=== PATIENT | male | born 1970 | race Hispanic/Latino ===

== ENCOUNTER 2020-01-10 10:25 | Observation (INO) | payer OTHER ==
[~2020-01-10] VITALS: Ht 175.3 cm; Wt 79.4 kg
--- OUTSIDE RECORDS SUMMARY | 2020-01-10 10:28 | XMS REPORT ---
Author Author [facility] Address Unknown Phone Unavailable Care Team Providers Care [employer] Button Paster Name Role Phone KRYSTAL BRANDT Unavailable Unavailable Problems This patient has no known problems. Allergies, Adverse Reactions, Alerts This patient has no known allergies or adverse reactions. Medications This patient has no known medications. Results Test Description Test Time Test Comments Text Results Atomic Results Result Comments US ABDOMEN COMPLETE 2019-09-18 12:45:00 [place] [address] Patient Name: SRAVANTHI MONTERO MR #: [id number] : 1970 Age/Sex: 49/M Req #: [id number] [facility] Physician: Ordered by: KRYSTAL BRANDT MD Report #: [id number] Location: Room/Bed: Procedure: [id number] US/US ABDOMEN COMPLETE Exam Date: 09/18/19 Exam Time: 1117 REPORT STATUS: Signed EXAM: US ABDOMEN COMPLETE DATE: 09/18/2019 10:56 AM INDICATION: Right upper quadrant abdominal pain COMPARISON: None TECHNIQUE: Transverse and longitudinal rangel scale and color doppler sonographic images of the upper abdomen were obtained. FINDINGS: LIVER 14.4 cm in the right midclavicular line. Increased echogenicity of the liver with normal contour, no masses. SPLEEN 9.6 cm in maximum diameter. Normal echogenicity, no masses. GALLBLADDER No gallbladder wall thickening, distension, stone, or pericholecystic fluid. Negative reported sonographic Diallo's sign. The gallbladder wall measures 2mm BILE DUCTS No intra nor extra-hepatic biliary dilation. Common bile duct measures 3mm PANCREAS: Visualized portions are normal. RIGHT KIDNEY: 11.3 cm Echogenicity: Normal Collecting System: No hydronephrosis Stones: None Cyst/Mass: None LEFT KIDNEY: 12.2 cm Echogenicity: Normal Collecting System: No hydronephrosis Stones: None Cyst/Mass: None VESSELS: Aorta: Visualized portions are within normal size limits Inferior Vena Cava: Visualized portions are normal Main Portal Vein: 0.9 cm, normal size with hepatopetal flow. FREE FLUID: None IMPRESSION: No cholelithiasis or sonographic evidence of cholecystitis. Hepatic steatosis. No renal calculi or hydronephrosis. Signed by: Iris Abraham MD on 09/18/2019 12:47 PM Dictated By: IRIS ABRAHAM MD [id number] Transcribed By: DAVID on 09/18/19 1247 COPY TO: KRYSTAL BRANDT MD
[2020-01-10] MEDS ORDERED: SODIUM CHLORIDE 0.9% 1000ML 1,000 ML IV STA (10:36)
[2020-01-10] MEDS ORDERED: ASPIRIN 81 MG CHEW TAB PO ONE (10:45)
[2020-01-10] MEDS ORDERED: METOPROLOL TARTRATE 25 MG TAB PO ONE (10:45)
[2020-01-10 10:47] LABS: BASOPHILS # (AUTO) 0.1 (0.0-0.1); BASOPHILS % 0.8 % (0.0-1.0); EOSINOPHILS # (AUTO) 0.1 (0.0-0.4); EOSINOPHILS % 1.9 % (0.0-6.0); HEMOGLOBIN 17.1 g/dL (14.0-18.0); LYMPHOCYTES # (AUTO) 2.6 (1.0-3.2); LYMPHOCYTES % 40.9 % (18.0-39.1); MEAN CORPUSCULAR HEMOGLOBIN 33.5 pg (28-32); MEAN CORPUSCULAR HGB CONC 36.4 g/dL (31-35); MEAN CORPUSCULAR VOLUME 92.2 fL (81-99); MONOCYTES # (AUTO) 0.8 (0.2-0.8); NEUTROPHILS # (AUTO) 2.7 (2.1-6.9); NEUTROPHILS % 44.1 % (38.7-80.0); PLATELET COUNT 236 x10e3/uL (140-360)
[2020-01-10 10:54] LABS: BILIRUBIN,URINE NEGATIVE (NEGATIVE); CLARITY,URINE CLEAR (CLEAR); COLOR,URINE YELLOW (YELLOW); KETONES,URINE NEGATIVE (NEGATIVE); LEUKOCYTE ESTERASE ,URINE NEGATIVE (NEGATIVE); NITRITE,URINE NEGATIVE (NEGATIVE); PROTEIN,URINE DIPSTICK NEGATIVE (NEGATIVE); URINE UROBILINOGEN 0.2 mg/dL (0.2 - 1)
[2020-01-10 10:59] LABS: INR 0.89; PARTIAL THROMBOPLASTIN TIME 26.8 seconds (23.8-35.5); PROTHROMBIN TIME 12.6 seconds (11.9-14.5)
--- NOTE | 2020-01-10 11:05 | Diagnostic Imaging Report ---
EXAMINATION: CHEST SINGLE (PORTABLE) INDICATION: Atrial fibrillation, chest pain COMPARISON: None FINDINGS: LINES/TUBES:EKG leads overlie the chest. LUNGS:The lungs are well-inflated. No focal consolidation or pulmonary edema. PLEURA:No pleural effusion or pneumothorax. MEDIASTINUM:The cardiomediastinal silhouette appears normal in size and shape. BONES/SOFT TISSUES:No acute osseous injury. ABDOMEN:No free air under the diaphragm. IMPRESSION: No focal pneumonia or pulmonary edema. Signed by: Krzysztof Gray MD on 01/10/2020 11:02 AM
[2020-01-10 11:09] LABS: ALANINE AMINOTRANSFERASE 26 IU/L (0-55); ALBUMIN 4.1 g/dL (3.5-5.0); ALBUMIN/GLOBULIN RATIO 1.3 (0.8-2.0); ALKALINE PHOSPHATASE 58 IU/L (40-150); ANION GAP 10.9 mmol/L (8-16); BLOOD UREA NITROGEN 13 mg/dL (7-26); BUN/CREATININE RATIO 15 (6-25); CALCIUM 9.7 mg/dL (8.4-10.2); CARBON DIOXIDE 30 mmol/L (22-29); CHLORIDE 106 mmol/L (98-107); CREATINE KINASE 110 IU/L (30-200); CREATININE, SERUM 0.85 mg/dL (0.72-1.25); EST GLOMERULAR FILTRATION RATE > 60 ML/MIN (60-); GLUCOSE 88 mg/dL (74-118); MAGNESIUM 2.2 MG/DL (1.3-2.1); POTASSIUM 3.9 mmol/L (3.5-5.1); SODIUM 143 mmol/L (136-145)
[2020-01-10] MEDS: ENOXAPARIN INJ 80 MG/0.8 ML SYR SC SCH ×2 (11:11→21:17)
[2020-01-10 11:21] LABS: BACTERIA,URINE MODERATE /HPF; EPITHELIAL CELLS,URINE RARE /LPF; MUCUS,URINE MODERATE (RARE); RBC,URINE 0-5 /HPF (0-5); WBC,URINE (MAN) 0-5 /HPF (0-5)
[2020-01-10 11:23] LABS: THYROID STIMULATING HORMONE 1.366 uIU/mL (0.350-4.940)
[2020-01-10] MEDS ORDERED: LORAZEPAM INJ 2 MG/ML VIAL IV ONE (11:30)
[2020-01-10 11:37] LABS: AMPHETAMINES SCREEN,URINE NEGATIVE (NEGATIVE); BENZODIAZEPINES SCREEN,URINE NEGATIVE (NEGATIVE); PHENCYCLIDINE SCREEN,URINE NEGATIVE (NEGATIVE)
[2020-01-10] MEDS ORDERED: MORPHINE SULFATE 2 MG/ML SYR 1ML IV PRN (11:45)
[2020-01-10] MEDS ORDERED: ONDANSETRON HCL INJ 2MG/ML 2ML 2 MG/ML VIAL IV PRN (11:45)
[2020-01-10] MEDS ORDERED: METOPROLOL TARTRATE INJ 1 MG/ML VIAL IV ONE (11:45)
[2020-01-10] MEDS ORDERED: MULTIVITAMINS- 12 INJECTION 10 ML, FOLIC ACID MDV 5 MG, THIAMINE HCL INJ 100 MG in SODI... IV ONE (11:45)
[2020-01-10] MEDS ORDERED: LORAZEPAM INJ 2 MG/ML VIAL IV PRN (11:45)
[2020-01-10] MEDS ORDERED: NITROGLYCERIN 0.4 MG SUBL SL PRN (11:45)
[2020-01-10] MEDS: AMIODARONE HCL 200 MG TAB PO SCH ×2 (12:25→16:18)
--- NOTE | 2020-01-10 13:00 | NUR ---
Patient denies the use of home medications.
[2020-01-10 14:00] VITALS: BP 111/80
--- NOTE | 2020-01-10 14:00 | NUR ---
Received patient transfer from ER via wheelchair. Respiration even and unlabored without SOB. Call light in reach.
[2020-01-10 15:52] VITALS: BP 111/80
[2020-01-10] MEDS: METOPROLOL TARTRATE 25 MG TAB PO SCH (16:18)
--- NOTE | 2020-01-10 19:03 | NUR ---
Report given to shift coordinator. Respiration even and unlabored without SOB. Call light in reach.
--- NOTE | 2020-01-10 19:22 | Consultation ---
DATE OF CONSULTATION: 01/10/2020 Cardiac Consultation REASON FOR CONSULTATION: Atrial fibrillation, shortness of breath, and chest tightness. HISTORY OF PRESENT ILLNESS: This is a 49-year-old gentleman, who was healthy and active. Yesterday, he felt chest pressure and chest tightness with palpitation. This did not improve, so he was alarmed by it. He came to the emergency room, was in atrial fibrillation with rapid ventricular response. Cardiac consultation is obtained. The patient said with his palpitation, he is having some tightness and he is feeling funny. Prior to this episode yesterday, the patient was very physically active with no angina. He does have class 2 shortness of breath on exertion. No orthopnea. No paroxysmal nocturnal dyspnea. No syncope. No presyncope. The patient had similar episode 7 years ago, which subsided by itself. The patient is a nonsmoker, but he drinks alcohol when he is not at work. He does not use any drugs. REVIEW OF SYSTEMS: Done to all systems, will be summarized for clarity. GENERAL: No fever. No chills. No weight loss. No weight gain. HEENT: No vision problem. No hearing problem. PULMONARY AND CARDIAC: As per above. GI: No hematemesis. No melena. Occasional heartburn. The patient had EGD and colonoscopy a few months back. : No hematuria. No dysuria. No frequency. MUSCULOSKELETAL: No aches. No pain. SOCIAL HISTORY: He is . 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 He is nonsmoker. He drinks alcohol when he is off work and with his friend's. PAST MEDICAL HISTORY: 1. One episode of atrial 7 years ago. 2. Appendectomy at a young age. HOME MEDICATIONS: None. ALLERGIES: NONE. FAMILY HISTORY: Father with Alzheimer's. He is old in his 80s. Mother is doing well in her 80s. No family history of premature coronary artery disease. PHYSICAL EXAMINATION: VITAL SIGNS: Height of 5 feet 6 inches, weight of 185 pounds. Blood pressure 110/60, heart rate irregularly irregular of atrial fibrillation at 110. The patient already received some beta-adrian intravenously by ER. Respiratory rate of 18. HEENT: Pupils are equal and reactive. NECK: No elevation of jugular venous pulsation. No bruit. CHEST: Clear to auscultation and percussion. HEART: PMI in the 5th left intercostal space. Irregularly irregular rate of atrial fibrillation. Normal first and second heart sounds. ABDOMEN: Soft with no organomegaly. No abdominal bruits. EXTREMITIES: No cyanosis. No clubbing. No edema. NEUROLOGIC: Nonfocal. LABORATORY DATA: White blood cell count of 6.2, hemoglobin 17.1, hematocrit 47%, and platelet count of 236,000. Electrolytes were normal. Potassium 3.9, glucose of 88. First set of cardiac enzymes normal. BNP is normal. TSH of 1.3. IMPRESSION AND PLAN: 1. Acute atrial fibrillation, symptomatic, prior episode 7 years ago. 2. No premature coronary artery disease. Cardiac monzon, my recommendation is small dose of beta-adrian, anticoagulation initiated by ER, which we will continue for the time being, aspirin. The patient will be observed on telemetry. There is a good chance he will be out of it by himself. If not, then we will decide about further steps. Echocardiogram is ordered. We are going to follow results to assure no left ventricular dysfunction or any other structural heart disease. At one stage, he will benefit from stress test, but this will be decided later. MD LINDSAY Brown/VICTORIA /[id number]
[2020-01-10 19:48] LABS: CREATINE KINASE MB 1.7 ng/mL (0-5.0)
[2020-01-10 20:00] VITALS: BP 134/89
[2020-01-10] MEDS ORDERED: ACETAMINOPHEN 325 MG TAB PO PRN (20:00)
[2020-01-10] MEDS: FAMOTIDINE 20 MG/2 ML VIAL IV SCH (21:17)
[2020-01-10 22:16] VITALS: BP 128/100
[2020-01-10 22:20] VITALS: BP 128/100
[2020-01-11] VITALS (7 sets, daily range): BP systolic 118–131; BP diastolic 84–96
[2020-01-11 06:14] LABS: BASOPHILS % 0.6 % (0.0-1.0); EOSINOPHILS # (AUTO) 0.2 (0.0-0.4); EOSINOPHILS % 2.8 % (0.0-6.0); HEMATOCRIT 46.7 % (38.2-49.6); HEMOGLOBIN 16.7 g/dL (14.0-18.0); LYMPHOCYTES # (AUTO) 2.8 (1.0-3.2); LYMPHOCYTES % 40.8 % (18.0-39.1); MEAN CORPUSCULAR HEMOGLOBIN 32.9 pg (28-32); MEAN CORPUSCULAR HGB CONC 35.8 g/dL (31-35); MEAN CORPUSCULAR VOLUME 91.9 fL (81-99); MONOCYTES # (AUTO) 0.6 (0.2-0.8); MONOCYTES % 9.2 % (4.4-11.3); NEUTROPHILS # (AUTO) 3.1 (2.1-6.9); NEUTROPHILS % 46.3 % (38.7-80.0); PLATELET COUNT 240 x10e3/uL (140-360); RED BLOOD COUNT 5.08 x10e6/uL (4.3-5.7); RED CELL DISTRIBUTION WIDTH 11.9 % (11.7-14.4)
[2020-01-11 06:32] LABS: ALANINE AMINOTRANSFERASE 24 IU/L (0-55); ALBUMIN 3.8 g/dL (3.5-5.0); ALBUMIN/GLOBULIN RATIO 1.3 (0.8-2.0); ALKALINE PHOSPHATASE 51 IU/L (40-150); ANION GAP 8.7 mmol/L (8-16); BLOOD UREA NITROGEN 11 mg/dL (7-26); BUN/CREATININE RATIO 13 (6-25); CALCIUM 9.3 mg/dL (8.4-10.2); CARBON DIOXIDE 29 mmol/L (22-29); CHLORIDE 106 mmol/L (98-107); CHOL/HDL RATIO 4.7 (3.9-4.7); CHOLESTEROL 191 MD/DL (0-199); CREATININE, SERUM 0.82 mg/dL (0.72-1.25); EST GLOMERULAR FILTRATION RATE > 60 ML/MIN (60-); GLUCOSE 97 mg/dL (74-118); HDL CHOLESTEROL 41 MG/DL (40-60); LDL CHOLESTEROL 110 MG/DL (60-130); POTASSIUM 3.7 mmol/L (3.5-5.1); SODIUM 140 mmol/L (136-145); TRIGLYCERIDES 198 MG/DL (0-149)
[2020-01-11 06:47] LABS: CREATINE KINASE MB 0.9 ng/mL (0-5.0)
[2020-01-11] MEDS ORDERED: ASPIRIN 81 MG ENTERIC COATED PO SCH (09:00)
[2020-01-11] MEDS: FAMOTIDINE 20 MG/2 ML VIAL IV SCH (09:06)
[2020-01-11] MEDS: AMIODARONE HCL 200 MG TAB PO SCH (09:06)
[2020-01-11] MEDS: METOPROLOL TARTRATE 25 MG TAB PO SCH (09:07)
[2020-01-11] MEDS: ENOXAPARIN INJ 80 MG/0.8 ML SYR SC SCH (11:02)
[2020-01-11] MEDS ORDERED: ELIQUIS5 MG PO (11:12)
[2020-01-11] MEDS ORDERED: AMIODARONE HCL200 MG PO (11:12)
[2020-01-11] MEDS ORDERED: METOPROLOL TART25 MG PO (11:12)
--- NOTE | 2020-01-11 12:00 | NUR ---
The pt's iv was dc'd post removal of iv and provision of prescriptions.
[2020-01-11] MEDS ORDERED: ONDANSETRON HCL 4 MG ORAL DISINTEGRATING TAB PO PRN (13:00)
[2020-01-11] MEDS ORDERED: FAMOTIDINE 20 MG TAB PO SCH (21:00)
--- NOTE | 2020-01-12 08:17 | Discharge Summary ---
ADMISSION DIAGNOSES: Atrial fibrillation with rapid ventricular response. DISCHARGE DIAGNOSES: Atrial fibrillation with rapid ventricular response. HISTORY: None. PAST SURGICAL HISTORY: Appendectomy. FAMILY HISTORY: Noncontributory. SOCIAL HISTORY: The patient drinks 6 beers daily. HOSPITAL COURSE: A 49-year-old male admitted with complaints of palpitations around 11 p.m. on Wednesday. He had associated shortness of breath and chest pain. He says he had a similar issue about 10 years ago, but does not remember being diagnosed with AFib. On admission, heart rate got up to 129. Chest x-ray was negative for edema or pneumonia. Urine drug screen was negative. Echo showed an EF of 45% to 50%. TSH was within normal limits. Cardiology was consulted, who said that the patient has been discharged home. He was started on amiodarone and metoprolol in the hospital, which converted him to sinus rhythm. He will continue the amiodarone, metoprolol, and was given a prescription for Eliquis per Cardiology recommendation. He was advised to stop drinking. The patient understands discharge instructions and agrees the plan. The patient will follow up with primary care in 1-2 weeks and Cardiology in one week. Vital signs are stable. Patient is afebrile. Dictated by Jane Jimenez NP MD TAWANA Samuel/MODL /[id number]
== END 2020-01-11 13:28 | disposition home or self-care (01) ==
LOC: ER 10:25 → ERHOLD 11:45 → MED/SURG3 13:58
PROVIDERS: ADMIT Internal Medicine; ATTEND Internal Medicine
DX: I48.0 Paroxysmal atrial fibrillation (principal); Z79.01 Long term (current) use of anticoagulants; F10.10 Alcohol abuse, uncomplicated; I48.92 Unspecified atrial flutter
CPT/HCPCS: 36415 ×2; 71045; 80053 ×2; 80061; 80307; 81001; 82550 ×2; 82553 ×2; 83036; 83735; 83880; 84443 ×2; 84484 ×2; 85025 ×2; 85610; 85730; 87086; 93005 ×2; 93306; 99284; G0378 ×2; J1650 ×2; J2060; J3411; J7030